=== PATIENT | male | born 1990 | race American Indian/Alaskan Native ===

== ENCOUNTER 2017-07-19 21:33 | Emergency (ER) | payer SELFPAY ==
[2017-07-19 22:33] VITALS: BP 122/84
== END 2017-07-19 22:30 | disposition left against medical advice (07) ==
LOC: ED 21:33
DX: K08.89 Other specified disorders of teeth and supporting structures (principal); Z53.21 Procedure and treatment not carried out due to patient leaving prior to being seen by health care provider

== ENCOUNTER 2017-09-09 22:51 | Emergency (ER) | payer SELFPAY ==
[2017-09-09] MEDS ORDERED: ZOFRAN ONE (22:58)
[2017-09-09] MEDS ORDERED: MORPHINE ONE (22:59)
[2017-09-09] MEDS ORDERED: MORPHINE IV ONE (23:01)
[2017-09-09] MEDS ORDERED: BOOSTRIX IM ONE (23:01)
[2017-09-09] MEDS ORDERED: ZOFRAN IV ONE (23:01)
[2017-09-09] MEDS ORDERED: NACL 0.9% 1000 ML 1,000 ML IV ONE (23:02)
[2017-09-09 23:10] LABS: Hematocrit 44.4 % (35.5-45.6); Hemoglobin 14.7 gm/dl (11.8-15.2); Mean Corpuscular HGB Conc 33 % (32-34); Mean Corpuscular Hemoglobin 34 pg (28-32); Mean Corpuscular Volume 102 fl (84-94); Platelet Count 258 K/mm3 (140-440); Red Blood Count 4.33 M/mm3 (3.65-5.03); Red Cell Distribution Width 12.9 % (13.2-15.2)
[2017-09-09 23:22] LABS: BUN/Creatinine Ratio 10; Blood Urea Nitrogen 12 mg/dL (9-20); Calcium 8.5 mg/dL (8.4-10.2); Hemolysis Index 51
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
[2017-09-09] MEDS ORDERED: ceFAZolin 1 GM in NACL 0.9% 20 ML IV ONE (23:45)
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
[2017-09-10 00:15] LABS: Basophils % (Manual) 0 % (0.0-1.8); Total Cells Counted 100
[2017-09-10 00:16] LABS: RBC Morphology Normal
[2017-09-10] MEDS ORDERED: NACL ONE (00:20)
[2017-09-10] MEDS ORDERED: TRIPLE ANTIBIOTIC TP ONE ×2 (01:25→01:37)
[2017-09-10] MEDS ORDERED: PERCOCET 5/325 PO ONE (02:14)
[2017-09-10] MEDS ORDERED: TORADOL IV ONE (02:21)
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
[2017-09-10 05:33] VITALS: BP 122/60
== END 2017-09-10 04:45 | disposition home or self-care (01) ==
LOC: ED 22:51
DX: S71.101A Unspecified open wound, right thigh, initial encounter (principal); S81.802A Unspecified open wound, left lower leg, initial encounter; S79.921A Unspecified injury of right thigh, initial encounter; S89.92XA Unspecified injury of left lower leg, initial encounter; J45.909 Unspecified asthma, uncomplicated; F17.200 Nicotine dependence, unspecified, uncomplicated; Z91.013 Allergy to seafood; X95.9XXA Assault by unspecified firearm discharge, initial encounter; Y93.89 Activity, other specified; Y92.89 Other specified places as the place of occurrence of the external cause; Y99.8 Other external cause status
CPT/HCPCS: 36415; 73552; 73590; 73706; 80048; 85007; 85025; 86850; 86900; 86901; 96361; 96374; 96375; 99285; J0690; J1885; J2270; J2405; J7030; Q9967; A6250

== ENCOUNTER 2018-01-07 12:09 | Emergency (ER) | payer SELFPAY ==
[2018-01-07] MEDS ORDERED: ROCEPHIN IM ONE (13:05)
[2018-01-07] MEDS ORDERED: FLAGYL PO ONE (13:05)
[2018-01-07] MEDS ORDERED: XYLOCAINE 1% MPF 5 mL INFILTRATI ONE (13:05)
[2018-01-07] MEDS ORDERED: ZITHROMAX PO ONE (13:05)
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
[2018-01-07 14:46] VITALS: BP 126/74
== END 2018-01-07 14:45 | disposition home or self-care (01) ==
LOC: ED 12:09
DX: Z20.2 Contact with and (suspected) exposure to infections with a predominantly sexual mode of transmission (principal); F17.200 Nicotine dependence, unspecified, uncomplicated; J45.909 Unspecified asthma, uncomplicated; Z91.013 Allergy to seafood
CPT/HCPCS: 96372; 99282; J0696

== ENCOUNTER 2018-02-02 10:06 | Emergency (ER) | payer SELFPAY ==
[2018-02-02 10:34] VITALS: BP 127/82
--- NOTE | 2018-02-02 13:19 | Emergency Department Report ---
ED Male HPI - General Chief complaint: Skin Rash Stated complaint: RASH Time Seen by Provider: 02/02/18 12:58 Source: patient Mode of arrival: Ambulatory Limitations: No Limitations - History of Present Illness Initial comments: This is 27-year-old male patient here complaining the skin or rash all over and stating that he has been exposed to something. He said he has some circular rash on his body and her itching and he thinks she has been exposed to ring worm he is also complaining of some penile burning with urination and after urination but denies any penile discharge. Patient here and wants to be treated for STD and also wants to be tested. Denies any nausea or vomiting, denies any abdominal or back pain. No medication taken. Pain better to urinate rhodes. No pain if he does not urinate. MD Complaint: dysuria, other (rash) Onset/Timin -: days(s) Location: penis (urinated) Radiation: none Severity scale (0 -10): 2 Quality: burning Consistency: intermittent Worsens with: urination new sexual partner dysuria. denies: discharge, swelling, mass, rash, urinary retention, blood in urine, fever, nausea/vomiting, incontinence - Related Data Sexually active: Yes Previous Rx's Medication Instructions Recorded Last Taken Type Phenazopyridine [Pyridium] 100 mg PO TID #6 tab 03/29/15 Unknown Rx cephALEXin [Keflex] 500 mg PO Q6HR 7 Days #28 capsule 09/10/17 Unknown Rx oxyCODONE /ACETAMINOPHEN [Percocet 1 tab PO Q6HR PRN #20 tablet 09/10/17 Unknown Rx 5/325] Fluconazole [Diflucan TAB] 150 mg PO QDAY 3 Days #3 tablet 02/02/18 Unknown Rx Ketoconazole 2% [Nizoral] 15 gm TP BID 7 Days #1 tube 02/02/18 Unknown Rx Allergies Allergy/AdvReac Type Severity Reaction Status Date / Time seafood Allergy Rash Uncoded 07/19/17 22:29 ED Review of Systems ROS: Stated complaint: RASH Other details as noted in HPI Constitutional: denies: chills, fever Respiratory: denies: cough, shortness of breath, wheezing Cardiovascular: denies: chest pain, palpitations, edema, syncope Endocrine: no symptoms reported Gastrointestinal: denies: abdominal pain, nausea, vomiting, diarrhea Genitourinary: dysuria. denies: urgency, frequency, hematuria, discharge, testicular pain, testicular mass Musculoskeletal: denies: back pain, arthralgia Skin: rash, pruritus. denies: lesions Neurological: denies: headache ED Past Medical Hx - Past Medical History Previous Medical History?: Yes Hx Asthma: Yes - Surgical History Past Surgical History?: Yes Additional Surgical History: testicular torsion repair - Family History Family history: hypertension - Social History Smoking Status: Current Every Day Smoker Substance Use Type: None - Medications Home Medications: Home Medications Medication Instructions Recorded Confirmed Last Taken Type Phenazopyridine [Pyridium] 100 mg PO TID #6 tab 03/29/15 Unknown Rx cephALEXin [Keflex] 500 mg PO Q6HR 7 Days #28 capsule 09/10/17 Unknown Rx oxyCODONE /ACETAMINOPHEN [Percocet 1 tab PO Q6HR PRN #20 tablet 09/10/17 Unknown Rx 5/325] Fluconazole [Diflucan TAB] 150 mg PO QDAY 3 Days #3 tablet 02/02/18 Unknown Rx Ketoconazole 2% [Nizoral] 15 gm TP BID 7 Days #1 tube 02/02/18 Unknown Rx ED Physical Exam - General Limitations: No Limitations General appearance: alert, in no apparent distress - Head Head exam: Present: atraumatic, normocephalic, normal inspection - ENT ENT exam: Present: normal exam, normal orophraynx, mucous membranes moist - Neck Neck exam: Present: normal inspection, full ROM. Absent: tenderness, lymphadenopathy - Respiratory Respiratory exam: Present: normal lung sounds bilaterally. Absent: respiratory distress, chest wall tenderness - Cardiovascular Cardiovascular Exam: Present: regular rate, normal rhythm, normal heart sounds - GI/Abdominal GI/Abdominal exam: Present: soft, normal bowel sounds. Absent: tenderness, rigid, organomegaly, mass - Extremities Exam Extremities exam: Present: normal inspection, full ROM, normal capillary refill , other (No cce. + 2 pulses in all extremities, no neurovascular compromise). Absent: tenderness, pedal edema - Back Exam Back exam: Present: normal inspection, full ROM. Absent: tenderness, CVA tenderness (R), CVA tenderness (L), rash noted - Neurological Exam Neurological exam: Present: alert, oriented X3, normal gait - Psychiatric Psychiatric exam: Present: normal affect, normal mood - Skin Skin exam: Present: warm, dry, intact, normal color, rash - Expanded Skin Exam Expanded Distribution of rash: face, chest, RUE, LUE, RLE, LLE Description of rash: Present: erythematous, other (rash appears to be well demarcated edges that are erythema with clearing to Center. Appears fungal in nature.). Absent: tenderness, discharge, fluctuant ED Course Vital Signs 02/02/18 10:32 Temperature 98.8 F Pulse Rate 69 Respiratory 18 Rate Blood Pressure 127/82 O2 Sat by Pulse 99 Oximetry - Reevaluation(s) Reevaluation #1: 02/02/18 14:34 Pt treated for gonorrhea with 20-50 mg of Rocephin IM and chlamydia with 1 gram of azithromycin. He had no adverse reaction from medication. ED Medical Decision Making - Lab Data Lab Results 02/02/18 Range/Units 13:19 Urine Color Yellow (Yellow) Urine Turbidity Clear (Clear) Urine pH 8.0 H (5.0-7.0) Ur Specific [place] 1.011 (1.003-1.030) Urine Protein <15 mg/dl (Negative) mg/dL Urine Glucose (UA) Neg (Negative) mg/dL Urine Ketones Neg (Negative) mg/dL Urine Blood Neg (Negative) Urine Nitrite Neg (Negative) Urine Bilirubin Neg (Negative) Urine Urobilinogen < 2.0 (<2.0) mg/dL Ur Leukocyte Esterase Neg (Negative) Urine WBC (Auto) < 1.0 (0.0-6.0) /HPF Urine RBC (Auto) 1.0 (0.0-6.0) /HPF Urine Mucus Few /HPF Urine gonorrhea and chlamydia sent and pending. - Medical Decision Making This is a 27-year-old male here reports that he is having urine burning before and after urinating. Denies any pedal discharge. He also reports that he has a chair rash. Urinalysis: Negative except for minor elevation in urine pH. See full report on the laboratory section. Assessment/plan 1: Dysuria-urinalysis negative for infection 2: Male concerned for STD without diagnosis-urine gonorrhea and chlamydia sent. Patient was treated for gonorrhea with 20-50 mg of Rocephin IM and 1 g of azithromycin by mouth. I discussed the patient diagnoses, treatment plan and urinalysis results. I told him he can come back to Hospital on 02/05/2018 to the medical records department to get his medical record for gonorrhea and chlamydia. I also told him to refrain from sexual activity and that if his test comes back positive he will need to follow up with the health department to have retesting done. I also discussed with him that he has ringworm and will be treated with antifungal medication and he voiced understanding. Patient discharged home in stable condition, vital signs stable he is afebrile. He was given prescription for ketoconazole topical and Diflucan. I also told him that he can follow-up with his outside [facility] Center for primary care. Critical care attestation.: If time is entered above; I have spent that time in minutes in the direct care of this critically ill patient, excluding procedure time. ED Disposition Clinical Impression: Dysuria, Concern about STD in male without diagnosis Disposition: DC-01 TO HOME OR SELFCARE Is pt being admited?: No Does the pt Need Aspirin: No Condition: Stable Instructions: Safe Sex (ED), Sexually Transmitted Diseases (ED), Dysuria (ED) Additional Instructions: [facility] follow-up and its clean-cut E health Department in 7-10 days for STD testing. Urine were treated for gonorrhea and chlamydia in emergency room today Please refrain from having sexual activity until you are aware of what your results are. He can return to the medical records department on 02/05/2018 twice a day to get your records Take medication as prescribed Prescriptions: Fluconazole [Diflucan TAB] 150 mg PO QDAY 3 Days #3 tablet Ketoconazole 2% [Nizoral] 15 gm TP BID 7 Days #1 tube Referrals: PRIMARY CARE,MD [Primary Care Provider] - 3-5 Days Forms: Work/School Release Form(ED)
[2018-02-02] MEDS ORDERED: ROCEPHIN IM ONE (13:25)
[2018-02-02] MEDS ORDERED: XYLOCAINE 1% MPF 5 mL INFILTRATI ONE (13:25)
[2018-02-02] MEDS ORDERED: ZITHROMAX PO ONE (13:25)
[2018-02-02 13:46] LABS: Bilirubin,Urine NEG (Negative); Blood,Urine NEG (Negative); Color,Urine Yellow (Yellow); Mucus,Urine FEW /HPF; Protein,Urine <15 mg/dL mg/dL (Negative); Urobilinogen,Urine < 2.0 mg/dL (<2.0); WBC,Urine < 1.0 /HPF (0.0-6.0)
== END 2018-02-02 14:52 | disposition home or self-care (01) ==
LOC: ED 10:06
DX: R30.0 Dysuria (principal); R21 Rash and other nonspecific skin eruption; A64 Unspecified sexually transmitted disease; J45.909 Unspecified asthma, uncomplicated; F17.200 Nicotine dependence, unspecified, uncomplicated; Z91.013 Allergy to seafood
CPT/HCPCS: 81001; 87591; 96372; 99283; J0696